=== PATIENT | male | born 1965 | race Hispanic/Latino ===

== ENCOUNTER 2019-02-03 21:26 | Emergency (ER) | payer OTHER ==
[2019-02-03 22:43] LABS: BASOPHILS % (AUTO) 0.9 % (0.0-5.0); EOSINOPHILS % (AUTO) 1.4 % (0.0-8.0); HEMATOCRIT 42.6 % (42-54); LYMPHOCYTES % (AUTO) 27.8 % (21.0-51.0); MEAN CORPUSCULAR HEMOGLOBIN 30.5 pg (27.0-33.0); MEAN CORPUSCULAR VOLUME 87.3 fL (79-99); MONOCYTES % (AUTO) 8.6 % (3.0-13.0); NEUTROPHILS % (AUTO) 61.3 % (40.0-77.0); NUCLEATED RED BLOOD CELLS 0.1 % (0.0-0.19); PLATELET COUNT (AUTO) 209 K/uL (130-400); RED BLOOD CELL COUNT(AUTO) 4.88 MIL/uL (4.50-6.20); RED CELL DISTRIBUTION WIDTH 12.4 % (11.0-15.5); WHITE BLOOD COUNT (AUTO) 7.8 K/uL (4.8-10.8)
[2019-02-03 22:57] LABS: BILIRUBIN,TOTAL 0.4 mg/dL (0.2-1.0); INR 1.02 (0.85-1.15); PARTIAL THROMBOPLASTIN TIME 25.1 SEC (26.3-35.5); PROTHROMBIN TIME 10.7 SEC (9.6-11.6)
[2019-02-03] MEDS ORDERED: DiphenhydrAMINE HCL 50 MG/ML VIAL ONE (23:24)
[2019-02-03] MEDS ORDERED: METOCLOPRAMIDE 10 MG/2 ML VIAL ONE (23:24)
[2019-02-03] MEDS ORDERED: IOHEXOL-350 50ML VIAL IV ONE (23:41)
== END 2019-02-04 00:41 | disposition home or self-care (01) ==
LOC: EDH 21:26
DX: R51 Headache (principal); I10 Essential (primary) hypertension; R11.2 Nausea with vomiting, unspecified; R79.1 Abnormal coagulation profile; F10.10 Alcohol abuse, uncomplicated; E78.5 Hyperlipidemia, unspecified; E11.9 Type 2 diabetes mellitus without complications
CPT/HCPCS: 36415; 70450; 70460; 80053; 85025; 85610; 85730; 96374; 96375; 99285; J1200; J2765; Q9967